=== PATIENT | male | born 1985 | race Caucasian/White ===

== ENCOUNTER 2017-05-20 19:29 | Emergency (ER) | payer OTHER ==
[2017-05-20 19:38] VITALS: BP 136/91
== END 2017-05-20 21:31 | disposition home or self-care (01) ==
LOC: ED 19:29
DX: S01.111A Laceration without foreign body of right eyelid and periocular area, initial encounter (principal); X58.XXXA Exposure to other specified factors, initial encounter; Y93.89 Activity, other specified; Y99.8 Other external cause status; Y92.89 Other specified places as the place of occurrence of the external cause

== ENCOUNTER 2017-05-22 16:56 | Emergency (ER) | payer OTHER ==
[~2017-05-22] VITALS: Ht 182.9 cm; Wt 98.9 kg
[2017-05-22 17:07] VITALS: BP 149/74
== END 2017-05-22 18:19 | disposition home or self-care (01) ==
LOC: ED 16:56
DX: S01.111D Laceration without foreign body of right eyelid and periocular area, subsequent encounter (principal); Y99.8 Other external cause status; X58.XXXD Exposure to other specified factors, subsequent encounter; Y92.89 Other specified places as the place of occurrence of the external cause